=== PATIENT | male | born 1990 | race Two or more races ===

== ENCOUNTER 2018-07-08 14:15 | Emergency (ER) | END 2018-07-08 16:24 | disposition home or self-care (01) ==

== ENCOUNTER 2018-11-09 11:21 | Emergency (ER) | payer SELFPAY ==
[~2018-11-09] VITALS: Ht 188 cm; Wt 102.0 kg
[~2018-11-09 11:21] MED LIST: ACET500C5 PO; NAPR-985 PO
[2018-11-09 11:24] VITALS: Ht 188 cm; Wt 102.0 kg
[2018-11-09] MEDS ORDERED: KETOROLAC 60 MG INJ IM STA (12:03)
[2018-11-09 13:30] VITALS: BP 125/78; PULSE 82; RESP 18
[2018-11-09] MEDS ORDERED: IBUP-1542 PO (13:31)
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
== END 2018-11-09 13:34 | disposition home or self-care (01) ==
LOC: FTE 11:21
DX: S80.11XA Contusion of right lower leg, initial encounter (principal); V49.69XA Unspecified car occupant injured in collision with other motor vehicles in traffic accident, initial encounter
CPT/HCPCS: 73590; J1885; 96372

== ENCOUNTER 2018-11-16 18:15 | Emergency (ER) | payer SELFPAY ==
[~2018-11-16] VITALS: Ht 175.3 cm; Wt 101.2 kg
[~2018-11-16 18:15] MED LIST changes: +IBUP-1542 PO
[2018-11-16 18:17] VITALS: Ht 175.3 cm; Wt 101.2 kg
[2018-11-16] MEDS ORDERED: KETOROLAC 30 MG INJ IM STA (20:08)
--- NOTE | 2018-11-16 20:10 | ERD ---
ER Documentation Chief Complaint Chief Complaint Complains of back pain since today HPI 28-year-old male is here complaining of left-sided lower back pain that he woke up with this morning. It was mild at first but has gotten worse as the days gone on. He tried taking Tylenol but it did not help. No bowel or bladder incontinence or saddle anesthesia. The pain radiates down his left lower extremity. No dysuria hematuria or frequency. No trauma. ROS All systems reviewed and are negative except as per history of present illness. Medications Home Meds Active Scripts Ibuprofen* (Motrin*) 600 Mg Tab, 600 MG PO Q6, #30 TAB Prov:MARIE EDWARD PA-C 11/09/18 Acetaminophen* (Tylophen*) 500 Mg Capsule, 1 CAP PO Q6H PRN for PAIN AND OR ELEVATED TEMP, #30 CAP Prov:BISMARK PHOENIX PA-C 07/08/18 Naproxen* (Naprosyn*) 500 Mg Tablet, 500 MG PO BID PRN for PAIN AND/OR INFLAMMATION, #30 TAB Prov:BISMARK PHOENIX PA-C 07/08/18 Allergies Allergies: Coded Allergies: No Known Allergy (Unverified , 11/09/18) PMhx/Soc Medical and Surgical Hx: pt denies Surgical Hx History of Surgery: No Anesthesia Reaction: No Hx Neurological Disorder: No Hx Respiratory Disorders: No Hx Cardiac Disorders: No Hx Psychiatric Problems: No Hx Miscellaneous Medical Probl: Yes (HIV) Hx Alcohol Use: No Hx Substance Use: No Hx Tobacco Use: No Smoking Status: Never smoker FmHx Family History: No diabetes Physical Exam Vitals Vital Signs Date Temp Pulse Resp B/P (MAP) Pulse Ox O2 O2 Flow FiO2 Time Delivery Rate 11/16/18 97.7 78 20 140/94 98 18:17 (109) Physical Exam Const: Mild distress secondary to pain Head: Atraumatic Eyes: Normal Conjunctiva ENT: Normal External Ears, Nose and Mouth. Neck: Full range of motion. No meningismus. Resp: Clear to auscultation bilaterally Cardio: Regular rate and rhythm, no murmurs Abd: Soft, non tender, non distended. Normal bowel sounds Back Exam: Compartments: Soft Motor: Normal flexion and extension of bilateral hip/knee/ankle/foot Sensation: Intact to light touch throughout Bones: No midline TTP, left-sided lower paraspinal tenderness Procedures/MDM Patient has back pain. He is ambulatory neurovascular intact. No trauma. No bowel or bladder incontinence or saddle anesthesia. Likely this is musculoskeletal. He was given Toradol and [place] here and discharged with ibup rofen, Flexeril, and [place]. Patient counseled regarding my diagnostic impression and care plan. Prior to discharge all questions answered. Pt agrees with treatment plan and understands strict return precautions. Pt is instructed to follow up with primary care provider within 24-48 hours. Precautionary instructions provided including instructions to return to the ER if not improvin g or for any worsening or changing symptoms or concerns. Departure Diagnosis: Primary Impression: Back pain Condition: Stable KISHAN ORONA PA-C Nov 16, 2018 20:10
[2018-11-16] MEDS ORDERED: CYCL10TA7 PO (20:11)
[2018-11-16] MEDS ORDERED: IBUP800T48 PO (20:11)
[2018-11-16] MEDS ORDERED: HYDR-4011 PO (20:11)
[2018-11-16] MEDS ORDERED: HYDROCODONE/APAP (10/325) TAB PO ONE (20:30)
[2018-11-16 20:46] VITALS: BP 132/83; PULSE 68; RESP 16
== END 2018-11-16 20:47 | disposition home or self-care (01) ==
LOC: FTE 18:15
DX: M54.5 Low back pain (principal); Z21 Asymptomatic human immunodeficiency virus [HIV] infection status
CPT/HCPCS: 96372; 99284; J1885

== ENCOUNTER 2019-01-19 00:58 | Emergency (ER) | payer MEDICAID, OTHER ==
[~2019-01-19] VITALS: Ht 188 cm; Wt 95.0 kg
[~2019-01-19 00:58] MED LIST changes: +CYCL10TA7 PO; +HYDR-4011 PO; +IBUP800T48 PO
[2019-01-19 01:09] VITALS: Ht 188 cm; Wt 95.0 kg
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
[2019-01-19 02:09] VITALS: BP 124/80; PULSE 79; RESP 16
== END 2019-01-19 02:15 | disposition home or self-care (01) ==
LOC: E/R 00:58
DX: T75.4XXA Electrocution, initial encounter (principal); Z21 Asymptomatic human immunodeficiency virus [HIV] infection status
CPT/HCPCS: 99282